=== PATIENT | female | born 1955 | race Caucasian/White ===

== ENCOUNTER 2018-06-24 01:14 | Inpatient (IN) | payer OTHER ==
[~2018-06-24] VITALS: Ht 162.6 cm; Wt 62.6 kg
[~2018-06-24 01:14] MED LIST: CRESTOR20 M2 PO; LEXAPRO10 M1 PO; LISINOPRIL10 M1 PO; NEXIUM40 M1 PO
--- NOTE | 2018-06-24 08:14 | Admission Core Measures ---
Acute Coronary Syndrome (CM) ACS Core Measures Acute Coronary Syndrome Diagnosis No Congestive Heart Failure (NEW) CHF Core Measures Congestive Heart Failure Diagnosis No Cerebrovascular Accident CVA Core Measures CVA/TIA Diagnosis No Venous Thromboembolism VTE Core Les (View Protocol) VTE Risk Factors Surgery No Mechanical VTE Prophylaxis d/t N/A MechProphylax Ordered No VTE Pharm Prophylaxis d/t NA PharmProphylax ordered Problem List As ranked by this Provider includes Assessment & Plan 1. Unilateral primary osteoarthritis, right hip HOME MEDS Home Med List Escitalopram Oxalate (Lexapro) 10 MG TABLET 1 TAB PO DAILY DEPRESSION ( Reported) Esomeprazole (Nexium) 40 MG CAPSULE.DR 1 CAP PO DAILY GERD (Reported) Lisinopril 10 MG TABLET 1 TAB PO DAILY BP (Reported) Rosuvastatin Calcium (Crestor) 20 MG TABLET 1 TAB PO QPM CHOLESTEROL ( Reported)
--- NOTE | 2018-06-24 08:16 | Surg Short-stay <48hrs Dis Sum ---
Visit Information Visit Dates Admission Date: 06/24/18 Discharge Date: 06/24/18 Surgical Short Stay DC Summary Admission Diagnosis: Right hip OA Final Diagnosis: BISI s/p R TERESA Procedure(s): Right total hip arthroplasty Summary/Significant Findings: Patient was admitted to the hospital for an elective right total hip replacement. The procedure was tolerated well and patient was transferred to a general surgical floor. Diet was advanced and tolerated. The patient was evaluated and treated by physical therapy. At the time of hospital discharge, vital signs were stable, neurovascular status was intact and pain was controlled with the use of oral pain medications. Condition at Discharge: Stable Discharge Disposition: home health services Discharge instructions provided to patient/family: Yes Post discharge follow-up plan: [address] Hendrix
--- NOTE | 2018-06-24 08:18 | Patient Discharge Instructions ---
Discharge Instructions General Discharge Information You were seen/treated for: Right hip osteoarthritis You had these procedures: Right total hip arthroplasty Watch for these problems: Increasing pain despite the use of pain medication Increasing redness, warmth or swelling Drainage of any type from incision Inability to bear weight on operative leg Persistent nausea and vomiting Fever greater than 101.5 degrees Do not soak the wound: Yes No bath, but you may shower: Yes Other wound care: Please keep wound clean and dry. No ointments or lotions of any type on or near incision at any time. No exceptions. Your dressing will be changed by your nurse on the second day after your surgery. Daily dry dressing changes are recommended each day thereafter. Do not soak your wound in a bath or pool at any time until otherwise indicated by your surgeon. You may shower, please dry wound immediately after shower with a clean towel. Special Instructions: Aspirin: You are taking this medication to help prevent blood clot formation. Please take with food to protect your stomach lining. Please take as directed. Constipation: Pain medication can cause constipation. Your surgeon has recommended that you take Colace and miralax each day. You may discontinue this medication if you develop loose stool or diarrhea. Diet Continue normal diet: Yes Activity Full Activity/No Limits: No Activity Self Limited: Yes Activity Limited to: Weight bear as tolerated (with rolling walker as needed) Acute Coronary Syndrome Inclusion Criteria At DC or during hospital stay patient has or had the following: ACS DIAGNOSIS No Discharge Core Measures Meds if any: Prescribed or Continued at Discharge Meds if any: NOT Prescribed or Continued at Discharge Congestive Heart Failure Inclusion Criteria At DC or during hospital stay patient has or had the following: CHF DIAGNOSIS No Discharge Core Measures Meds if any: Prescribed or Continued at Discharge Meds if any: NOT Prescribed or Continued at Discharge Cerebrovascular accident Inclusion Criteria At DC or during hospital stay patient has or had the following: CVA/TIA Diagnosis No Discharge Core Measures Meds if any: Prescribed or Continued at Discharge Meds if any: NOT Prescribed or Continued at Discharge Venous thromboembolism Inclusion Criteria VTE Diagnosis No VTE Type NONE VTE Confirmed by (Test) NONE Discharge Core Measures - Per Current guidelines, there needs to be overlap - treatment for the first 5 days of Warfarin therapy. - If discharged on Warfarin prior to 5 days of - overlap therapy, the patient will need to be - assessed for post discharge needs including - *Post discharge parental anticoagulation - *Warfarin and/or parental anticoagulation education - *Follow up date to check INR post discharge At least 5 days overlap therapy as Inpatient No Meds if any: Prescribed or Continued at Discharge Note: Overlap Therapy is Warfarin and Anticoagulant Meds if any: NOT Prescribed or Continued at Discharge
[2018-06-24] MEDS ORDERED: COLACE100 M1 PO (08:27)
[2018-06-24] MEDS ORDERED: MIRALAX17 G1 PO (08:27)
[2018-06-24] MEDS ORDERED: ASPIRIN EC81 M1 PO (08:27)
[2018-06-24] MEDS ORDERED: DILAUDID2 M1 PO (08:27)
[2018-06-24] MEDS ORDERED: MS CONTIN15 M3 PO (08:27)
[2018-06-24] MEDS ORDERED: INDOMETHACIN25 M1 PO (08:27)
--- NOTE | 2018-06-24 10:03 | RADIOLOGY REPORT ---
EXAMINATION: XR HIP, RIGHT CLINICAL INFORMATION: Right total hip replacement. COMPARISON: None TECHNIQUE: Two views of the right hip. FINDINGS: The femoral head prosthesis is well centered within the acetabular cup which exhibits lateral version of approximately 50 degrees and anteversion of approximately 30 degrees. The femoral stem is well-positioned in the medullary cavity of the proximal femoral diaphysis. A thin linear lucency in the posterior cortex of the proximal femoral diaphysis has the appearance of a nutrient foramen/vascular groove. There is postoperative soft tissue gas around the region of the replaced hip. IMPRESSION: Satisfactory position and alignment of components of the right total hip arthroplasty.
[2018-06-24 14:00] VITALS: BP 132/74
--- NOTE | 2018-06-24 14:29 | PN- Orthopedic ---
Subjective Subjective: POC FEELING WELL, JUST GOT TO FLOOR, WORKED WITH PT IN PACU AND CLEARED FOR HHS DC. AWAITING MEAL. NO N/V, NO CP/SOB, +VOID Objective Vital Signs and I&Os SEE EMR Physical Exam: GEN- NAD CARD- RRR PULM- no audible wheeze ABD- soft nt EXT- r hip dressed-cdi. calves soft nt, teds on bl. feet warm. gross dorsi/ plantar flexion intact, gross sensation intact Assessment/Plan Assessment/Plan A- POD0 sp R TERESA, stable with minimal postop pain, awaiting postop meal. P- prn pain meds asa 81mg bid alps/teds oob, pt, wbat dc planning- cleared by PT for HHS dc will dw attending Core Measures Venous Thromboembolism VTE Risk Factors Surgery No Mechanical VTE Prophylaxis d/t N/A MechProphylax Ordered No VTE Pharm Prophylaxis d/t NA PharmProphylax ordered
--- NOTE | 2018-06-24 14:42 | Operative Report ---
Operative/Inv Procedure Report Surgery Date: 06/24/18 Name of Procedure: Right total hip replacement Pre-Operative Diagnosis: Primary right hip DJD Post-Operative Diagnosis: Same Estimated Blood Loss: 250 Surgeon/Senior Data Quality Analyst: Simeon HENDRICKS,Danny Lai Anesthesia: block Operative/Procedure Note Note: Description of Procedure: The patient was taken to the operating room and positively identified. After induction of spinal anesthesia and administration of appropriate pre-operative antibiotics, the patient was positioned supine on the operating room table and all bony prominences were well padded. After performing a surgical timeout, the right lower extremity was prepped and draped in the usual sterile fashion. A direct anterior approach was made to the right hip. The incision was carried sharply through superficial soft tissues to the level of the fascia. Meticulous hemostasis was maintained with Bovie electocautery. The fascia over the tensor fascia reece muscle was opened sharply and the interval between the TFL and the sartorius was entered bluntly taking care to stay lateral to the lateral femoral cutaneous nerve. Retractors were placed around the femoral neck and the pericapsular fat was identified. The ascending branches of the lateral femoral circumflex vessels were identified and carefully coagulated. The pericapsular fat and anterior capsule were then resected. A napkin ring osteotomy was performed and the femoral head was removed without difficulty. Attention was then turned to the acetabulum. After appropriate placement of retractors, the acetabulum was exposed. Soft tissue was cleaned from the acetabular margin and notch. Overhanging osteophytes were removed and the teardrop was exposed. The acetabulum was then sequentially reamed to accept a 52 mm Pruvi Tritanium hemispherical solid shell. This was impacted into place in the appropriate position and fitted with a 32 mm Trident X3 zero degree polyethylene insert. Attention was then turned to the femur. After performing the appropriate ligament releases, the proximal femur was exposed. It was then sequentially broached to accept a size 3 Purvi Accolade II stem. This was trialed for leg length and stability. The trial component was removed and the final component was impacted into place. The trunnion was carefully cleaned and fit with a 32 mm, +4 Biolox delta ceramic femoral head. The hip was reduced and put through a full range of motion and found to be stable. The articular space was then irrigated with sterile saline. The periarticular soft tissues were infilitrated with Marcaine. The fascial layer was closed with interrupted #1 vicryl suture and the skin was re-approximated with interrupted 2 -0 vicryl. The skin was closed with a running 3-0 V-Lock suture. Steri-strips and a sterile dressing were applied. The patient was awakened and taken to the recovery room in satisfactory condition.
== END 2018-06-24 15:48 | disposition home health service (06) | DRG 470 ==
LOC: SDA 01:14 → ENRESERV 12:52 → ENTRNSPT 13:34 → EDTRNSPT 13:45 → EDTRNSPTSTS 13:45 → 2NB 13:52 → CMPTRNSPT 14:10 → ENPENDDIS 14:34 → ENTRNSPT 15:41 → EDTRNSPTSTS 15:42 → EDTRNSPT 15:42 → CMPTRNSPT 15:46 → 2NB 15:48
PROC: 0SR904A Replacement of Right Hip Joint with Ceramic on Polyethylene Synthetic Substitute, Uncemented, Open Approach (ICD-10-PCS; principal; 2018-06-24)
DX: M16.11 Unilateral primary osteoarthritis, right hip (principal); I10 Essential (primary) hypertension; K21.9 Gastro-esophageal reflux disease without esophagitis; Z88.2 Allergy status to sulfonamides
CPT/HCPCS: 2NBSP; 73502-RT; 97116-GO; 97161-GP; J0131; J0690; J0735; J2405; J7042